=== PATIENT | male | born 1950 | race Caucasian/White ===

== ENCOUNTER → 2022-12-11 | Outpatient (CLI) | payer MEDICARE ==
--- NOTE | 2022-12-11 09:54 | Diagnostic Imaging Report ---
Indication: Ankle pain. 3 views were obtained FINDINGS: The alignment is normal. The plafond and talar dome are intact. There are mild degenerative changes. No fracture or traumatic subluxation. Tiny radiopaque foreign body along the anterior aspect of the soft tissues of the ankle. IMPRESSION: Degenerative changes. Tiny radiopaque foreign body. Dictated by: Dictated on workstation # [id number]
== END ==
LOC: ORTHO 09:01
PROVIDERS: ATTEND Orthopaedic Surgery
DX: M25.572 Pain in left ankle and joints of left foot (principal)
CPT/HCPCS: 20605; 73610; G0463

== ENCOUNTER → 2023-03-10 | Outpatient (CLI) | payer MEDICARE | LOC: ORTHO 09:45 | PROVIDERS: ATTEND Orthopaedic Surgery | DX: M25.572 Pain in left ankle and joints of left foot (principal) | CPT/HCPCS: 20610 ==

== ENCOUNTER → 2023-06-17 | Outpatient (CLI) | payer MEDICARE | LOC: ORTHO 10:20 | PROVIDERS: ATTEND Orthopaedic Surgery | DX: M25.572 Pain in left ankle and joints of left foot (principal) | CPT/HCPCS: 99213 ==

== ENCOUNTER → 2023-06-29 | Outpatient (CLI) | payer MEDICARE ==
--- NOTE | 2023-06-29 10:54 | Diagnostic Imaging Report ---
EXAMINATION: Magnetic resonance imaging of the left ankle without contrast. DATE: June 29, 2023. COMPARISON: Left ankle radiographs December 11, 2022. HISTORY: 73-year-old male, chronic left ankle pain. TECHNIQUE: Magnetic Resonance Imaging sequences were performed of the ankle without contrast. FINDINGS: TENDONS AND LIGAMENTS: The Achilles tendon is unremarkable. There is tenosynovitis of tibialis posterior. There is no identified tear of the posterior flexor tendon. There is an interstitial split tear of the peroneus brevis tendon beginning just proximal to the level of the distal fibular tip measuring approximately 2.3 cm in length. The peroneus longus tendon is intact. There is fluid in the common peroneal tendon sheath, compatible with tenosynovitis. There is tenosynovitis of tibialis anterior. There is no identified tear of an anterior extensor tendon. The anterior and posterior syndesmotic ligaments are intact. There are tears of the anterior talofibular, posterior talofibular, and calcaneofibular ligaments. There is a tear of the deep deltoid ligament. The plantar fascia is intact. JOINTS: There is approximately 50-75% cartilage loss of the posterior aspect of the posterior subtalar joint with a small posterior subtalar joint effusion. The posterior talar facet is anteriorly subluxed relative to the posterior calcaneal facet by roughly 25%. There is no evidence of tibiotalar arthritis. BONE: The navicular is inferiorly subluxed relative to the head of the talus by 50-75%. The navicular is also anteriorly subluxed relative to its cuneiform articulations. There is subluxation of the posterior subtalar joint as mentioned above. There is edema-like signal in the talus, calcaneus, and navicular which is likely degenerative related and relating to abnormal bone alignment. There is no acute fracture. There is no evidence of osteonecrosis. The talar dome is intact. BURSAE AND SOFT TISSUES: There is diffuse subcutaneous edema. IMPRESSION: 1. Tears of the anterior talofibular, posterior talofibular, and calcaneofibular ligaments as well as of the deep deltoid ligament. Intact syndesmotic ligaments. 2. Interstitial split tear of the peroneus brevis. 3. Tenosynovitis of tibialis posterior and anterior as well as common peroneal tenosynovitis. 4. The navicular is inferiorly subluxed relative to the head of the talus by 50-75% and is also inferiorly subluxed relative to its cuneiform articulations. 5. 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 Dictated by: Dictated on workstation # [id number]
== END ==
LOC: RAD 08:20
PROVIDERS: ATTEND Orthopaedic Surgery
DX: S93.492A Sprain of other ligament of left ankle, initial encounter (principal); S93.412A Sprain of calcaneofibular ligament of left ankle, initial encounter; S86.312A Strain of muscle(s) and tendon(s) of peroneal muscle group at lower leg level, left leg, initial encounter; M65.9 Synovitis and tenosynovitis, unspecified; S93.02XA Subluxation of left ankle joint, initial encounter; M19.012 Primary osteoarthritis, left shoulder; X58.XXXA Exposure to other specified factors, initial encounter
CPT/HCPCS: 73721